=== PATIENT | female | born 1975 | race Caucasian/White ===

== ENCOUNTER → 2017-08-07 | Outpatient (CLI) | payer BC, OTHER | LOC: CFH 15:46 | PROVIDERS: ATTEND Nurse Practitioner Primary Care | DX: Z12.31 Encounter for screening mammogram for malignant neoplasm of breast (principal); N64.89 Other specified disorders of breast; R53.83 Other fatigue; I83.893 Varicose veins of bilateral lower extremities with other complications; B96.81 Helicobacter pylori [H. pylori] as the cause of diseases classified elsewhere; R79.89 Other specified abnormal findings of blood chemistry; J06.0 Acute laryngopharyngitis; R51 Headache | CPT/HCPCS: 77067 ==

== ENCOUNTER → 2017-08-09 | Outpatient (CLI) | payer OTHER | END | disposition home or self-care (01) | LOC: CFH 07:03 | PROVIDERS: ATTEND Nurse Practitioner Primary Care | DX: K76.9 Liver disease, unspecified (principal); R53.83 Other fatigue; B96.81 Helicobacter pylori [H. pylori] as the cause of diseases classified elsewhere; R79.89 Other specified abnormal findings of blood chemistry; E78.2 Mixed hyperlipidemia; K21.9 Gastro-esophageal reflux disease without esophagitis; B49 Unspecified mycosis; Z90.49 Acquired absence of other specified parts of digestive tract | CPT/HCPCS: 76700 ==

== ENCOUNTER → 2020-02-10 | Outpatient (CLI) | payer OTHER | END | disposition home or self-care (01) | LOC: CFH 12:16 | PROVIDERS: ATTEND Nurse Practitioner Primary Care | DX: Z12.31 Encounter for screening mammogram for malignant neoplasm of breast (principal) | CPT/HCPCS: 77063; 77067 ==